=== PATIENT | female | born 1995 | race Caucasian/White ===

== ENCOUNTER 2016-03-27 07:30 | Emergency (ER) | payer MEDICAID, OTHER ==
[~2016-03-27] VITALS: Ht 152.4 cm; Wt 58.5 kg
[2016-03-27 07:33] VITALS: Ht 152.4 cm; Wt 58.5 kg
--- NOTE | 2016-03-27 08:25 | ERD ---
ER Documentation Chief Complaint Date/Time DATE: 03/27/16 TIME: 08:22 Chief Complaint RUQ PAIN X 1 MONTH GOT WORSE TODAY HPI This is a 20-year-old female who presents to the emergency department in the company of abdominal pain for the past month but it got worse today. She is here with her brother. States the pain sometimes does go to her back.Denies any fevers or chills, nausea or vomiting. ROS All systems reviewed and are negative except as per history of present illness. Medications Home Meds Active Scripts Acetaminophen* (Tylophen*) 500 Mg Capsule, 1 CAP PO Q6H Y for PAIN AND OR ELEVATED TEMP, #30 CAP Prov:LANRE FORBES PA-C 03/27/16 Ibuprofen* (Motrin*) 800 Mg Tab, 800 MG PO Q6, #30 TAB Prov:LANRE FORBES PA-C 03/27/16 Hydrocodone/Acetaminophen (Belfry 5-325 Tablet) 1 Each Tablet, 1 TAB PO Q6H Y for PAIN, #20 TAB Prov:LANRE FORBES PA-C 03/27/16 Allergies Allergies: Coded Allergies: No Known Allergy (Unverified , 03/27/16) PMhx/Soc Medical and Surgical Hx: pt denies Medical Hx, pt denies Surgical Hx Hx Alcohol Use: No Hx Substance Use: No Hx Tobacco Use: No Physical Exam Vitals Vital Signs Date Time Temp Pulse Resp B/P Pulse Ox O2 Delivery O2 Flow Rate FiO2 03/27/16 07:33 97.9 75 19 107/67 100 Physical Exam Const: No acute distress Head: Atraumatic Eyes: Normal Conjunctiva ENT: Normal External Ears, Nose and Mouth. Neck: Full range of motion..~ No meningismus. Resp: Clear to auscultation bilaterally Cardio: Regular rate and rhythm, no murmurs Abd: Soft, right upper quadrant tenderness non distended. Normal bowel sounds. No right lower quadrant pain. No tenderness at McBurney's. No left lower quadrant pain. Skin: No petechiae or rashes Back: No midline or flank tenderness Neur: Awake and alert Psych: Normal Mood and Affect Result Diagram: 03/27/16 0823 03/27/16 0823 Results 24 hrs Laboratory Tests Test 03/27/16 08:23 03/27/16 08:29 Alanine Aminotransferase (ALT/SGPT) 34IU/L Albumin 4.7g/dl Albumin/Globulin Ratio 1.20 Alkaline Phosphatase 96IU/L Anion Gap 19 Aspartate Amino Transf (AST/SGOT) 42IU/L Basophils # 0.110^3/ul Basophils % 0.4% Blood Morphology Comment Blood Urea Nitrogen 12mg/dl Calcium Level 9.8mg/dl Carbon Dioxide Level 31mmol/L Chloride Level 99mmol/L Creatinine 0.53mg/dl Direct Bilirubin 0.00mg/dl Eosinophils # 0.710^3/ul Eosinophils % 5.8% Globulin 3.90g/dl Glucose Level 90mg/dl Hematocrit 42.7% Hemoglobin 13.9g/dl Indirect Bilirubin 0.1mg/dl Lipase 84U/L Lymphocytes # 1.010^3/ul Lymphocytes % 7.7% Mean Corpuscular Hemoglobin 27.4pg Mean Corpuscular Hemoglobin Concent 32.4g/dl Mean Corpuscular Volume 84.4fl Mean Platelet Volume 10.0fl Monocytes # 0.710^3/ul Monocytes % 5.1% Neutrophils # 10.410^3/ul Neutrophils % 81.0% Nucleated Red Blood Cells # 0.010^3/ul Nucleated Red Blood Cells % 0.0/100WBC Platelet Count 22217^3/UL Potassium Level 4.0mmol/L Red Blood Count 5.0610^6/ul Red Cell Distribution Width 12.9% Sodium Level 145mmol/L Total Bilirubin 0.1mg/dl Total Protein 8.6g/dl White Blood Count 12.910^3/ul Urine Bacteria MANY Urine Bilirubin NEGATIVE Urine Clarity CLEAR Urine Color YELLOW Urine Epithelial Cells MANY Urine Glucose NEGATIVE% Urine Hemoglobin NEGATIVE Urine Ketones NEGATIVE Urine Leukocyte Esterase NEGATIVE Urine Microscopic RBC 5-10/HPF Urine Microscopic WBC 5-10/HPF Urine Mucus MANY Urine Nitrite NEGATIVE Urine Specific [place] 1.025 Urine Total Protein TRACE Urine Urobilinogen 0.2 E.U./dL Urine pH 6.5 Current Medications Medications (Trade) Dose Ordered Sig/Lilliana Route PRN Reason Start Time Stop Time Status Last Admin Dose Admin Acetaminophen/ Hydrocodone Bitart (B[place]ry (5/325)) 1 tab ONCE ONCE PO 03/27/16 08:30 03/27/16 08:31 DC 03/27/16 08:19 Ketorolac Tromethamine (Toradol) 30 mg ONCE STAT IM 03/27/16 10:39 03/27/16 10:40 DC Patient: ROGER LANDIN : 1995 Age: 20 Sex: F [id number] DOS: 03/27/16 0811 Ordering MD: LANRE FORBES PA-C Location: [facility] Room/Bed: PROCEDURE: Abdominal ultrasound CLINICAL INDICATION: Abdominal pain TECHNIQUE: Johnson scale, color Doppler, and spectral Doppler ultrasound images of the right upper quadrant. COMPARISON: None FINDINGS: Pancreas: Not visualized due to overlying bowel gas Liver: Morphology: Normal in size and contour. Echogenicity: Normal. Focal lesions: None. Main portal vein: Patent with hepatopetal flow. Biliary System: Normal appearing gallbladder wall. Multiple gallstones are present within the gallbladder. No intra or extra-hepatic biliary dilatation. Common bile duct measures 2.6 mm in maximal dimension. Kidneys: Right 9.0 cm in length. Normal echogenicity. No hydronephrosis. No focal lesions or renal calculi. No free fluid identified. IMPRESSION: Cholelithiasis without evidence of abnormal gallbladder wall thickening to suggest cholecystitis. Normal caliber of the intrahepatic and extrahepatic biliary system. RPTAT: AADD .Matty Colorado MD, MD Date Time Electronically viewed and signed by .Matty Colorado MD, MD on 03/27/2016 09:16 .B/ CC: LANRE FORBES PA-C Procedures/[facility] This is a 20-year-old female who presents to the emergency department today complaining of right upper quadrant pain for the past month it is now worse today. Did obtain laboratory work as well as imaging Laboratory work shows a mildly elevated white blood cell count. She is not anemic. Her platelets are within normal limits. Her sodium is mildly elevated otherwise electrolytic within normal limits. Her glucose is within normal limits. Liver functions within normal limits. Lipase is within normal limits. UA is negative for infection. Urine test is negative. Patient has no lower abdominal pain and I was suspicion for ovarian torsion, tubo-ovarian abscess or ectopic . Right upper quadrant ultrasound shows cholelithiasis without evidence of abnormal gallbladder wall thickening to suggest cholecystitis. Patient gallstones are likely the source of her right upper quadrant pain. Again she has no lower abdominal pain and low suspicion for acute surgical abdomen at this time. Patient was given Belfry here in the emergency department. His pain was improved however she was given a Toradol injection prior to departure. Patient will be given a prescription for Belfry to Tylenol and Motrin for home. At this time the patient is stable for discharge and outpatient management. Patient should follow up with their PCP in the next 1-2 days. They may return to the emergency department sooner for any persistent or worsening of symptoms. Patient understood and agreed with the plan. Departure Diagnosis: Primary Impression: Abdominal pain Abdominal location: right upper quadrant Qualified Code: R10.11 - Right upper quadrant abdominal pain Condition: Fair LANRE FORBES PA-C Mar 27, 2016 08:24
[2016-03-27] MEDS ORDERED: HYDROCODONE/APAP (5/325) TAB PO ONE (08:30)
--- NOTE | 2016-03-27 09:17 | RADRPT ---
PROCEDURE: Abdominal ultrasound CLINICAL INDICATION: Abdominal pain TECHNIQUE: Johnson scale, color Doppler, and spectral Doppler ultrasound images of the right upper qu adrant. COMPARISON: None FINDINGS: Pancreas: Not visualized due to overlying bowel gas Liver: Morphology: Normal in size and contour. Echogenicity: Normal. Focal lesions: None. Main portal vein: Patent with hepatopetal flow. Biliary System: Normal appearing gallbladder wall. Multiple gallstones are present within the gallbladder. No intra or extra-hepatic biliary dilatation. Common bile duct measures 2.6 mm in maximal dimension. Kidneys: Right 9.0 cm in length. Normal echogenicity. No hydronephrosis. No focal lesions or renal calculi. No free fluid identified. IMPRESSION: Cholelithiasis without evidence of abnormal gallbladder wall thickening to suggest cholecystitis. Normal caliber of the intrahepatic and extrahepatic biliary system. RPTAT: AADD .Matty Colorado MD, MD Date Time Electronically viewed and signed by .Matty Colorado MD, on 03/27/2016 09:16 .B/
[2016-03-27 09:38] LABS: BASOPHIL # 0.1 10^3/ul (0.0-0.1); BASOPHILS % 0.4 % (0.0-2.0); EOSINOPHILS # 0.7 10^3/ul (0.0-0.5); EOSINOPHILS % 5.8 % (0.0-7.0); HEMATOCRIT 42.7 % (37.0-47.0); HEMOGLOBIN 13.9 g/dl (12.0-16.0); LYMPHOCYTES % 7.7 % (18.0-55.0); MEAN CORPUSCULAR HEMOGLOBIN 27.4 pg (29.0-33.0); MEAN CORPUSCULAR HGB CONC 32.4 g/dl (32.0-37.0); MEAN CORPUSCULAR VOLUME 84.4 fl (72.0-104.0); MONOCYTE # 0.7 10^3/ul (0.3-0.9); MONOCYTES % 5.1 % (0.0-13.0); NEUTROPHIL # 10.4 10^3/ul (1.6-7.5); PLATELET COUNT 227 10^3/UL (140-440); RED BLOOD COUNT 5.06 10^6/ul (4.20-5.40); RED CELL DISTRIBUTION WIDTH 12.9 % (11.5-14.5); UNCORRECTED WBC 12.9 10^3/ul (4.8-10.8); WHITE BLOOD COUNT 12.9 10^3/ul (4.8-10.8)
[2016-03-27 09:38] LABS: ADD UMIC YES; URINE BILIRUBIN (Dip) NEGATIVE (NEGATIVE); URINE BLOOD (Dip) NEGATIVE (NEGATIVE); URINE COLOR YELLOW (YELLOW); URINE GLUCOSE (Dip) NEGATIVE (NEGATIVE); URINE KETONES (Dip) NEGATIVE (NEGATIVE); URINE LEUKOCYTE ESTERASE (Dip) NEGATIVE (NEGATIVE); URINE NITRITE (Dip) NEGATIVE (NEGATIVE); URINE TOTAL PROTEIN (Dip) TRACE (NEGATIVE); URINE UROBILINOGEN (Dip) 0.2 E.U./dL (0.1-1.0)
[2016-03-27 09:49] LABS: ALBUMIN 4.7 g/dl (3.3-4.9)
[2016-03-27 09:50] LABS: CONDITION 1
[2016-03-27 09:51] LABS: CREATININE 0.53 mg/dl (0.44-1.00)
[2016-03-27 09:52] LABS: ALBUMIN/GLOBULIN RATIO 1.2; BILIRUBIN,INDIRECT 0.1 mg/dl (0-1.1); BILIRUBIN,TOTAL 0.1 mg/dl (0.2-1.3); CALCIUM 9.8 mg/dl (8.4-10.2); TOTAL PROTEIN 8.6 g/dl (6.1-8.1)
[2016-03-27 10:18] LABS: BACTERIA,URINE MANY; MUCUS,URINE MANY
[2016-03-27] MEDS ORDERED: KETOROLAC 30 MG INJ IM STA (10:39)
[2016-03-27] MEDS ORDERED: HYDR-906 PO (10:41)
[2016-03-27] MEDS ORDERED: IBUP800T25 PO (10:42)
[2016-03-27] MEDS ORDERED: ACET500C5 PO (10:42)
== END 2016-03-27 11:35 | disposition home or self-care (01) ==
LOC: FTE 07:30
DX: R10.11 Right upper quadrant pain (principal)
CPT/HCPCS: 36415; 76705; 80053; 81001; 83690; 85025; 96372; J1885; Z7502; Z7610; 81003